=== PATIENT | female | born 1975 | race African-American/Black ===

== ENCOUNTER → 2017-01-07 | Day surgery (SDC) | payer OTHER ==
[~2017-01-07] MED LIST: ACETAMINOPHEN 1000 MG/100 ML VIAL IV ONE; BUPIVACAINE/EPINEPHRINE 0.25% 50 ML VIAL ONE; HCTZ PO; IBUP600 PO; IRON325T2 OR; KETOROLAC TROMETHAMINE 30 MG/ML (IVP) VIAL IV PUSH ONE; LACTATED RINGER'S 1000 ML INJ 1,000 ML ONE; MIDAZOLAM HCL 2 MG/2 ML VIAL ONE; NIFE1TAB85 PO; ONDANSETRON HCL 4 MG/2 ML VIAL IV PUSH ONE; OXYC-360 PO; PRENTAB62 PO; PROPOFOL 200 MG/20 ML AMP IV ONE; ceFAZolin 2 GM PREMIX 50 ML ONE; metroNIDAZOLE 500 MG INJ 100 ML IV ONE
--- NOTE | 2017-01-07 14:14 | TN ---
cc: REILLY ZAMORANO M.D. DATE OF SURGERY: 01/07/2017. PREOPERATIVE DIAGNOSIS: Symptomatic cholelithiasis, chronic intermittent right lower quadrant pain and umbilical hernia. POSTOPERATIVE DIAGNOSES: Symptomatic cholelithiasis, chronic intermittent right lower quadrant pain and umbilical hernia. OPERATIVE PROCEDURE PERFORMED: 1. Laparoscopic cholecystectomy. 2. Laparoscopic appendectomy. 3. Laparoscopic adhesiolysis. 4. Umbilical hernia repair. SURGEON: Dr. Reilly Zamorano. FLOORWALKER: FUENTES Faulkner. ANESTHESIA: General. INDICATIONS: Very pleasant 41-year-old -[place] woman, a local [employer] who experienced severe abdominal pain and was found to have multiple gallstones. She has had a sensitivity to oral intake. She has had chronic intermittent right lower quadrant pain and requested evaluation of the appendectomy if possible. She also requests evaluation of her pelvic organs. The patient has a small umbilical hernia that is reducible. INTRAOPERATIVE FINDINGS: Gallbladder with stones without significant inflammatory adhesions. Appendix adherent in the right lower quadrant. Right lower quadrant adhesions of the cecum to the right lower quadrant. Omental adhesion and probable small hernia. Uterus adherent to the anterior peritoneum related to prior C-sections. Normal-appearing ovaries. Small benign-appearing paratubal cyst on the right side. ESTIMATED BLOOD LOSS: Less than 10 mL. NOTE: This procedure was assessed by my nurse practitioner. The skill set of an TOPOGRAPHICAL FIELD ASSISTANT was medically necessary to provide adequate visualization and to provide increased efficiency in the completion of the operation. The roving technician was at the back table providing appropriate instrumentation while the nurse practitioner was directly assisting me through the entirety of the procedure. DESCRIPTION OF THE PROCEDURE IN DETAIL: The patient was identified as Mirna Oliveros and taken to the operating room and placed in the supine position. Sequential compression devices were placed on bilateral lower extremities. Following induction of adequate general endotracheal anesthesia, the patient's abdomen was prepped and draped in the usual sterile fashion with Betadine. A time-out procedure was performed. Following completion the time-out procedure to everyone's satisfaction within room, 0.25% Marcaine with epinephrine was placed at each incision site. A small curvilinear incision within the inferior aspect of the umbilicus was carried out with a scalpel and dissection continued posteriorly. The preperitoneal fatty tissue was protruding through a small hernia defect which was extended inferiorly slightly. Entry into the peritoneal cavity was facilitated with the surgeon's finger. The [employer] balloon Charissa trocar was placed in the peritoneal cavity. The balloon was inflated to C02 insufflation to a level 15 mmHg ensued. Two upper abdominal 5 mm trocars were placed in the peritoneal cavity under direct laparoscopic view after incision in the skin with a scalpel. The gallbladder was immediately identified. It was retracted superiorly and anteriorly and removed from the gallbladder fossa in the dome down technique using the harmonic scalpel. The cystic artery was divided with the harmonic scalpel and the cystic duct was isolated from the surrounding tissues and ligated proximally and distally with #0 PDS Endoloops and the ___between the Endoloops using the harmonic scalpel. The gallbladder was laid in the right paracolic gutter. The gallbladder fossa was hemostatic. There was no bleeding from the cystic arterial stump and cyst duct ligature remained intact. Attention was then turned the right lower quadrant. Adhesions of the cecum to the lower right lower quadrant were identified and taken down with the harmonic scalpel. The appendix was identified and was adherent in the paracolic gutter adjacent to the cecum. It was mobilized with the harmonic scalpel. The appendiceal mesentery with the bilateral harmonic scalpel and a 0-PDS Endoloop was placed across the base the appendix at the level of the cecum. The appendix was amputated distal to this using the harmonic scalpel and placed into an Endo retriever bag along with the gallbladder and removed through the infraumbilical fascial port incision site which was dilated with the surgeon's finger. The specimens were passed off the field for pathologic evaluation. The right lower quadrant was examined. There midline suprapubic adhesions of the omentum through what appeared to be a small hernia defect. The uterus was adherent to the inferior midline peritoneum as well. Photographs were taken of bilateral ovaries which appeared normal and some benign-appearing paratubal cysts on the right side. Local anesthetic was placed in the subhepatic and right lower quadrant positions. Trocars were removed under direct visualization. There was no evidence of bleeding from the trocar sites. The umbilical trocar was used to desufflate the abdomen actively and was then removed. The umbilical hernia defect was approximated with multiple interrupted inverted #0 Prolene sutures. Port sites were irrigated with saline. Skin incisions were approximated with 4-0 Monocryl subcuticular sutures. Dressings were applied with Mastisol, half-inch brown Steri-Strips. Gauze and Tegaderm were placed within the umbilicus. The patient tolerated procedure without apparent complication. Sponge, needle and instrument counts were correct at the end of the case. MD PANTERA Olivera/[place] /1:31 PM /1:57 PM
== END | disposition home or self-care (01) ==
LOC: ESDC 08:53
PROVIDERS: ATTEND Surgery Trauma Surgery
DX: K80.10 Calculus of gallbladder with chronic cholecystitis without obstruction (principal); R10.31 Right lower quadrant pain; K42.9 Umbilical hernia without obstruction or gangrene; K66.0 Peritoneal adhesions (postprocedural) (postinfection)
CPT/HCPCS: 00750; 00790; 00840; 44970; 47562; 49585; 88304; J0131; J0690; J1885; J2405; J3010; J7120; J2250